=== PATIENT | female | born 1970 | race Caucasian/White ===

== ENCOUNTER → 2021-04-19 | Outpatient (CLI) | payer OTHER ==
[~2021-04-19] MED LIST: ALLOPURINOL100 MG PO; ATORVASTATIN CA40 MG PO; ECOTRIN81 MG PO; INSULIN; PROTONIX40 MG PO; VENLAFAXINE HC225 MG PO; VITAMIN B
[2021-04-19 10:19] LABS: HEMOGLOBIN 13.4 gm/dl (12.3-15.3); RED BLOOD COUNT 4.37 M/UL (4.00-5.10); WHITE BLOOD COUNT 6.8 K/UL (4.5-11.0)
[2021-04-19 10:41] LABS: BUN/CREATININE RATIO 14 (0-10)
== END ==
LOC: OPSV2 09:00
PROVIDERS: Obstetrics & Gynecology
DX: Z01.818 Encounter for other preprocedural examination (principal); N82.8 Other female genital tract fistulae
CPT/HCPCS: 80053; 81001; 85025; 93005

== ENCOUNTER → 2021-04-25 | Day surgery (SDC) | payer OTHER ==
[~2021-04-25] MED LIST changes: +AUGMENTIN 875-1 EACH PO; +DOCUSATE SODIU250 MG PO; +HUMALOG100 UNIT/3 SC; +HYDROCODONE-AC1 EACH PO; +IBUPROFEN600 MG PO; +NOVOLOG100 UNIT/1 SC
== END | disposition home or self-care (01) ==
LOC: OR 07:17
DX: N82.3 Fistula of vagina to large intestine (principal); Z79.4 Long term (current) use of insulin; Z79.82 Long term (current) use of aspirin; E78.5 Hyperlipidemia, unspecified; K21.9 Gastro-esophageal reflux disease without esophagitis; E66.01 Morbid (severe) obesity due to excess calories; Z93.3 Colostomy status
CPT/HCPCS: 71045; 82962; J0690; J1100; J1170; J1885; J2001; J2250; J2405; J2704; J2710; J3010; J7030; J7120